=== PATIENT | male | born 1965 | race Caucasian/White ===

== ENCOUNTER 2020-02-25 21:02 | Emergency (ER) | payer OTHER, SELFPAY ==
[2020-02-25 21:03] VITALS: BP 156/88; PULSE 98; RESP 18; TEMP 36.3; O2SAT 99; BMI 35.9
--- NOTE | 2020-02-25 21:20 | RAD_ITS ---
STUDY: X-RAY - RIGHT KNEE REASON FOR EXAM: Male, 54 years old. CAME DOWN WRONG PLAYING BASKETBALL. R KNEE PAIN. TECHNIQUE: 4 view(s) of the knee. COMPARISON: None. FINDINGS: Normal visualized distal femur. Normal visualized proximal tibia and fibula. Normal proximal tibiofibular articulation. Narrowed medial femorotibial compartment. Normal lateral femorotibial compartment. Narrowed lateral compartment of the patellofemoral articulation. The soft tissue structures are unremarkable. RAD/Knee 4 or More Views IMPRESSION: Moderate osteoarthritic changes. No acute fracture or other significant bony pathology Electronically Signed: Adan Deutsch MD at 21:35 EDT , Service support ,
--- NOTE | 2020-02-25 22:14 | ED.DCSUM_ITS ---
History of Present Illness Chief Complaint: Lower Extremity Injury Informant: Patient Onset: Today Context: Sudden Onset Timing: Continuous Current Severity: Moderate Maximum Severity: Moderate Narrative: The patient is a 54-year-old male was otherwise healthy that presents to the emergency department with right knee injury. Patient states he was playing basketball with his son. He states that he jumped up, and came down. His knee twisted and felt like it buckled. He states when he stands up, he feels like side to side, the knee is unstable. He had a difficult time putting weight on it. He did not strike his head. He denies loss of consciousness. He is otherwise been in his normal state of health. Prior similar symptoms: No Recent Illness/Hospitalization: No Past Medical History - Allergies and Home Meds Allergies/Adverse Reactions: Allergies No Known Allergies Allergy (Verified 02/25/20 21:05) Primary Care Physician: Tu Iyer DO [STAFF PHYSICIAN] - 2 Days Prior records reviewed: Yes Past Medical History: None Surgical History: no surgical history Review of Systems General: Denies: Chills, Fever, Sweats Eyes: Denies: Visual changes - bilaterally, Diplopia ENT: Denies: Rhinorrhea, Sore throat Cardiovascular: Denies: Chest pain, Palpitations Respiratory: Denies: Dyspnea, Cough, Dyspnea on exertion Gastrointestinal: Denies: Abdominal pain, Nausea, Vomiting, Diarrhea, Melena, Hematochezia Genitourinary: Denies: Dysuria, Hematuria, Frequency Musculoskeletal: Denies: Back pain, Extremity Pain Skin: Denies: Rash, Wounds Neurological: Denies: Headache, Weakness, Numbness Physical Exam Vital Signs/Narrative: Vital Signs Temp Pulse Resp BP Pulse Ox 02/25/20 21:03 97.3 F L 98 18 156/88 H 99 Inital Vital Signs reviewed: Yes General: Well nourished, Well developed, No Acute Distress Head: Normocephalic, Atraumatic Eyes: Perrl, EOMI ENT: Moist mucous membranes, No rhinorrhea Neck: Supple, Nontender Cardiovascular: Regular rate, Regular rhythm, No murmurs Respiratory: No distress, CTA bilaterally, Chest nontender Abdomen: Soft, Nontender, Nondistended, Normal bowel sounds Back: Nontender, Normal Inspection Extremities: No edema, Tenderness - The patient has some mild effusion over the right knee. His extension is preserved. His pulses are normal. There does appear to be some give over the MCL. Anterior posterior drawer testing are negative. Skin: Normal color, No rash Neurological: Alert, Oriented x3, Cranial nerves II-XII grossly intact, Normal Strength, Normal Sensation Psychological: Normal affect, Normal Mood Diagnostic/Tx/Re-eval Clinical Impression(s) from Imaging Studies Knee X-Ray 02/25/20 21:20 IMPRESSION: Moderate osteoarthritic changes. No acute fracture or other significant bony pathology Electronically Signed: Adan Deutsch MD at 21:35 EDT , Service support , - Medical Decision Making The patient presents with right knee injury. He does have some laxity in the MCL. There was no anterior posterior drawer laxity. His extension is preserved. There is a small effusion. He states the knee does feel unstable when he stands. Because of this, I will put him on a knee immobilizer but told him when he is nonweightbearing that he should take it out and work on his range of motion. He will continue his crutches. He will continue anti- inflammatories. He will follow-up with orthopedics. Impression 1. Right knee sprain ED Disposition - Plan for ED Patient: Instructions: ED Meniscal Injury Knee Poss Referrals: Tu Iyer DO [STAFF PHYSICIAN] - 2 Days
[2020-02-25 22:33] VITALS: BP 118/78; RESP 16
== END 2020-02-25 22:36 | disposition home or self-care (01) ==
LOC: ED 22:19
PROVIDERS: Emergency Provider Emergency Medicine; PCP Family Medicine
DX: S83.91XA Sprain of unspecified site of right knee, initial encounter (principal); X50.1XXA Overexertion from prolonged static or awkward postures, initial encounter; Y93.67 Activity, basketball; Y92.9 Unspecified place or not applicable; Y99.9 Unspecified external cause status
CPT/HCPCS: 73564; 99283

== ENCOUNTER → 2020-03-21 07:02 | Outpatient (CLI) ==
--- NOTE | 2020-03-21 08:18 | EKG12_ITS ---
Test Reason : PRE OP Blood Pressure : / mmHG Vent. Rate : 076 BPM Atrial Rate : 076 BPM P-R Int : 150 ms QRS Dur : 088 ms QT Int : 386 ms P-R-T Axes : 032 002 009 degrees QTc Int : 434 ms Normal sinus rhythm Normal ECG Confirmed by JERRY SARAH, CLIFFORD ([id number]), fashion editor ELVIRA MCGHEE ([id number]) on 03/24/2020 8:14:38 AM Referred By: Dereck Lema Confirmed By:CLIFFORD EDWARDS MD
[2020-03-21 08:25] LABS: Hemoglobin 13.6 g/dL (13.0-16.5); Mean Corp Hgb Conc 32.4 g/dL (32-36); Mean Corpuscular Hgb 30.8 pg (27.0-32.0); Platelet Count 241 K/mm3 (150-450); RBC Distribution Width CV 12.3 % (11.6-14.6); RBC Distribution Width SD 42.5 fl (35.1-43.9); Red Blood Count 4.42 M/mm3 (4.6-6.2); White Blood Count 5.8 K/mm3 (4.4-11.0)
[2020-03-21 08:46] LABS: Anion Gap 6 (5-15); BUN 15 mg/dL (7-18); BUN/Creat Ratio 11.4 RATIO (10-20); Calcium,Total 8.4 mg/dL (8.5-10.1); Chloride 107 mmol/L (98-107); Creatinine, Serum 1.32 mg/dL (0.70-1.30); EST Glomerular Filtration Rate 61 mL/min (>60); Est Glom Filt Rate - Afr Amer 73 mL/min (>60); Glucose 155 mg/dL (74-106); Potassium 3.8 mmol/L (3.5-5.1); Sodium Level 139 mmol/L (136-145)
== END ==
PROVIDERS: Physician Assistant
DX: Z01.810 Encounter for preprocedural cardiovascular examination (principal); Z01.818 Encounter for other preprocedural examination
CPT/HCPCS: 80048; 85027; 93005

== ENCOUNTER → 2020-03-27 17:12 | Outpatient (CLI) | payer OTHER, SELFPAY | PROVIDERS: PCP Family Medicine; Referring Provider Physician Assistant; Visit Provider Physician Assistant | DX: Z11.59 Encounter for screening for other viral diseases (principal) | CPT/HCPCS: 87635; C9803; U0003 ==